=== PATIENT | male | born 1940 | race Caucasian/White ===

== ENCOUNTER → 2022-07-29 07:43 | Outpatient (BNVA) | payer MEDICARE, OTHER, SELFPAY | PROVIDERS: PCP Internal Medicine; Visit Provider Otolaryngology | DX: H69.83 Other specified disorders of Eustachian tube, bilateral (principal); H91.93 Unspecified hearing loss, bilateral; G47.33 Obstructive sleep apnea (adult) (pediatric); E66.01 Morbid (severe) obesity due to excess calories; Z68.41 Body mass index [BMI] 40.0-44.9, adult | CPT/HCPCS: 99204 ==

== ENCOUNTER 2022-08-21 13:00 | Outpatient (CLI) | payer MEDICARE, OTHER, SELFPAY | END 2022-08-21 13:01 | disposition home or self-care (01) | LOC: SLEEP 08-22 07:48 | PROVIDERS: PCP Internal Medicine; Visit Provider Otolaryngology | DX: G47.33 Obstructive sleep apnea (adult) (pediatric) (principal); E66.01 Morbid (severe) obesity due to excess calories; Z68.41 Body mass index [BMI] 40.0-44.9, adult | CPT/HCPCS: G0399 ==

== ENCOUNTER → 2022-09-30 08:18 | Outpatient (BNVA) | payer MEDICARE, OTHER, SELFPAY | PROVIDERS: PCP Internal Medicine; Visit Provider Otolaryngology | DX: H69.80 Other specified disorders of Eustachian tube, unspecified ear (principal); G47.33 Obstructive sleep apnea (adult) (pediatric) | CPT/HCPCS: 99213 ==

== ENCOUNTER 2022-11-19 20:00 | Outpatient (CLI) | payer MEDICARE, OTHER, SELFPAY | END 2022-11-19 20:01 | disposition home or self-care (01) | LOC: SLEEP 11-20 06:20 | PROVIDERS: PCP Internal Medicine; Visit Provider Otolaryngology | DX: G47.33 Obstructive sleep apnea (adult) (pediatric) (principal) | CPT/HCPCS: 95811 ==

== ENCOUNTER → 2022-12-31 08:18 | Outpatient (BNVA) | payer MEDICARE, OTHER, SELFPAY | PROVIDERS: PCP Internal Medicine; Visit Provider Otolaryngology | DX: G47.33 Obstructive sleep apnea (adult) (pediatric); H93.A3 Pulsatile tinnitus, bilateral; H69.83 Other specified disorders of Eustachian tube, bilateral | CPT/HCPCS: 99213 ==

== ENCOUNTER 2023-01-27 09:12 | Outpatient (CLI) | payer MEDICARE, OTHER, SELFPAY ==
--- NOTE | 2023-01-27 09:30 | MR_ITS ---
WS: [id number] MRI BRAIN WITH HIGH-RESOLUTION IMAGING THROUGH THE INTERNAL AUDITORY CANALS WITHOUT AND WITH CONTRAST HISTORY: Puslatile tinnitus COMPARISON: 06/03/2014 TECHNIQUE: Multiplanar, multisequence imaging is performed through the brain. Additional 3 mm imaging performed in multiple planes through the internal auditory canal. Postcontrast imaging with ml's of MultiHance. No acute intracranial hemorrhage, midline shift, edema or mass effect. Diffusion imaging is normal. Mild to moderate small vessel ischemic type changes are similar to the p rior study. No significant progression of small vessel disease. No prior infarct. There is mild symme tric atrophy. Very mildly prominent asymmetric soft tissue in the region of the RIGHT pharyngeal mucosa. This is ju st below the level of the torus tubarius. There is also some slight enhancement in the RIGHT pharynge al mucosa. No definite infiltration of the parapharyngeal fat. These changes are best seen on the axi al postcontrast T1 sequences. This area is not included on all of the images. Ventricles and extra-axial spaces are normal. No inferior displacement of cerebellar tonsils. Clivus and pituitary gland are normal. Internal and external auditory canals: Unremarkable. Cranial nerves VII and VIII complexes: Unremarkable. No enhancement or mass. Cerebellopontine angles: Normal. Paranasal sinuses: No air-fluid levels in the sinuses. Mucoperiosteal thickening in the sphenoid sinu s. Mastoid air cells: There is increased T2 signal consistent with fluid along the RIGHT inner ear exten ding towards the petrous ridge. This was not present on the prior study from 2014. No effusion within the mastoid air cells. Calvarium and scalp: Normal. Visualized [place] and dural venous sinuses demonstrate no abnormality. IMPRESSION: 1. No mass or mass effect at the cerebellopontine angles. 2. Increased soft tissue with mild enhancement involving the RIGHT pharyngeal mucosa just below the t orus tubarius. Recommend direct visualization with laryngoscopy. 3. Small amount of fluid along the RIGHT inner ear into the petrous bone. 4. No acute infarct or enhancing intracranial mass. 5. Mild small vessel ischemic changes.
[2023-01-27] MEDS: gadobenate dimeglumine 20 mL vial IV (10:37)
== END 2023-01-27 09:13 | disposition home or self-care (01) ==
PROVIDERS: PCP Internal Medicine; Visit Provider Otolaryngology
DX: H93.A3 Pulsatile tinnitus, bilateral (principal)
CPT/HCPCS: 70553; A9577

== ENCOUNTER → 2023-02-21 10:38 | Outpatient (BNVA) | payer MEDICARE, OTHER, SELFPAY | PROVIDERS: PCP Internal Medicine; Visit Provider Otolaryngology | DX: H91.93 Unspecified hearing loss, bilateral (principal); H69.83 Other specified disorders of Eustachian tube, bilateral; H93.A3 Pulsatile tinnitus, bilateral | CPT/HCPCS: 99212; 99213 ==

== ENCOUNTER → 2023-06-03 08:29 | Outpatient (BNVA) | payer MEDICARE, OTHER, SELFPAY | PROVIDERS: PCP Internal Medicine; Visit Provider Nurse Practitioner Family | DX: Z85.828 Personal history of other malignant neoplasm of skin (principal); D22.5 Melanocytic nevi of trunk; L82.1 Other seborrheic keratosis; L57.0 Actinic keratosis; L82.0 Inflamed seborrheic keratosis; L57.8 Other skin changes due to chronic exposure to nonionizing radiation; L81.4 Other melanin hyperpigmentation | CPT/HCPCS: 17000; 17110; 99213 ==

== ENCOUNTER → 2024-06-03 13:38 | Outpatient (BNVA) | payer MEDICARE, OTHER, SELFPAY | PROVIDERS: PCP Internal Medicine; Visit Provider Nurse Practitioner Family | DX: D22.5 Melanocytic nevi of trunk (principal); L82.1 Other seborrheic keratosis; L57.8 Other skin changes due to chronic exposure to nonionizing radiation; L81.4 Other melanin hyperpigmentation; L21.8 Other seborrheic dermatitis; Z08 Encounter for follow-up examination after completed treatment for malignant neoplasm; Z85.828 Personal history of other malignant neoplasm of skin; L82.0 Inflamed seborrheic keratosis; Z78.9 Other specified health status; L53.8 Other specified erythematous conditions; L57.0 Actinic keratosis | CPT/HCPCS: 17000; 17110; 99214 ==